=== PATIENT | female | born 1975 | race Caucasian/White ===

== ENCOUNTER 2017-06-20 02:06 | Emergency (ER) | payer SELFPAY ==
[2017-06-20 02:22] LABS: Bilirubin Negative (Negative); Blood, Urine Negative (Negative); Glucose, Urine (Dipstick) Negative (Negative); Ketone, Urine Negative (Negative); Nitrite Negative (Negative); Protein, Urine (Dipstick) Negative (Neg-Trace)
[2017-06-20] MEDS ORDERED: Ibuprofen 800 MG TAB ONE (04:50)
[2017-06-20 05:06] LABS: #Basophils 0.1 thou/uL (0.0-0.2); #Eosinphils 0.4 thou/uL (0.0-0.7); #Lymphocytes 2.2 thou/uL (1.20-3.40); #Monocytes 0.6 thou/uL (0.11-0.59); #Neutrophils 3.8 thou/uL (1.40-6.50); %Basophils 0.9 % (0.0-1.0); %Eosinophils 5.1 % (0.0-10.0); %Lymphocytes 30.7 % (21.0-51.0); Hematocrit 31.1 % (36.0-47.0); Mean Platelet Volume 8.4 fL (7.4-10.4); Red Blood Cell (RBC) Count 3.54 mill/uL (4.20-5.40); White Blood Cell (WBC) Count 7.1 thou/uL (4.8-10.8)
[2017-06-20 05:27] LABS: Anion Gap 12 mmol/L (10-20); BUN (Urea Nitrogen) 13 mg/dL (7.0-18.7); Calc. Creatinine Clearance 0 mL/min (70-130); Calcium 8.6 mg/dL (7.8-10.44); Carbon Dioxide 21 mmol/L (22-29); Chloride 108 mmol/L (98-107); Estimated GFR-MDRD 81
--- NOTE | 2017-06-20 06:34 | ULT ---
PRELIMINARY REPORT/[facility]/EMERGENCY AFTER HOURS PROCEDURE: EXAM: US Pelvis Complete CLINICAL HISTORY: 42 years old, female; Pain; Pelvic pain and other: Pelvic pain more to rt side; Prior surgery; Surge ry date: 6+ months; Surgery type: Tubaligation (1995) TECHNIQUE: Real-time pelvic ultrasound (complete) with image documentation. COMPARISON: No relevant prior studies available. FINDINGS: The uterus measures 7.4 cm in length. There is no intrauterine fluid. There is no visible focal uterine mass. Endometrial thickness is 5.9 mm. There is no free pelvic fluid. The right ovary contains a relatively simple appearing cyst, measuring 28 x 25 x 28 mm. This is lik bianca a physiologic cyst, although other etiologies are not excluded. As clinically directed, follow up in one to three months may be useful to evaluate for resolution of a physiologic cyst, and to guard against a persistent/enlarging lesion. The left ovary appears unremarkable. Blood flow detected in each ovary. The urinary bladder was not completely evaluated/imaged at this time. IMPRESSION: 28 x 25 x 28 mm right ovarian cyst, see above discussion. Essentially unremarkable sonographic appearance of the uterus and left ovary. Other details discussed above. EXAM: US Pelvis, Transvaginal CLINICAL HISTORY: 42 years old, female; Pain; Pelvic pain and other: Pelvic pain more to rt side; Prior surgery; Surge ry date: 6+ months; Surgery type: Tubaligation (1995) TECHNIQUE: Real-time transvaginal pelvic ultrasound (complete) with image documentation. Transvaginal imaging w as used for better evaluation of the endometrium and adnexa. COMPARISON: No relevant prior studies available. FINDINGS: The uterus measures 7.4 cm in length. There is no intrauterine fluid. There is no visible focal uterine mass. Endometrial thickness is 5.9 mm. There is no free pelvic fluid. The right ovary contains a relatively simple appearing cyst, measuring 28 x 25 x 28 mm. This is lik bianca a physiologic cyst, although other etiologies are not excluded. As clinically directed, follow up in one to three months may be useful to evaluate for resolution of a physiologic cyst, and to guard against a persistent/enlarging lesion. The left ovary appears unremarkable. Blood flow detected in each ovary. The urinary bladder was not completely evaluated/imaged at this time. Endovaginal scanning provided better visualization/evaluation of the endometrium and ovarian/adnexal findings discussed above. IMPRESSION: 28 x 25 x 28 mm right ovarian cyst, see above discussion. Essentially unremarkable sonographic appearance of the uterus and left ovary. Other details discussed above. Thank you for allowing us to participate in the care of your patient. Dictated and Authenticated by: Kurt Ortega MD 06/20/2017 5:46 AM Central Time ([place] \T\ [place]) FINAL REPORT ON OVERNIGHT [facility] STUDY: I agree with the preliminary report provided. There is a 2.8 cm cyst within the right ovary. There is some internal echogenicity that raises suspicion that this is likely reflective of a hemorrhagic cyst. Follow-up examination in 6-8 weeks is recommended to document resolution. Left ovary is normal appearing. There is no evidence of torsion. No free fluid is evident. Visual ized aspects of the uterus appear within normal limits. POS: [facility]
== END 2017-06-20 06:00 | disposition home or self-care (01) ==
LOC: ERS 02:06
DX: N83.201 Unspecified ovarian cyst, right side (principal); F17.210 Nicotine dependence, cigarettes, uncomplicated; B19.20 Unspecified viral hepatitis C without hepatic coma
CPT/HCPCS: 36415; 76856; 80048; 81003; 85025

== ENCOUNTER 2018-01-02 15:55 | Emergency (ER) | payer SELFPAY ==
[2018-01-02 16:50] LABS: #Eosinphils 0.1 thou/uL (0.0-0.7); #Lymphocytes 1.9 thou/uL (1.20-3.40); #Monocytes 1.1 thou/uL (0.11-0.59); #Neutrophils 11.7 thou/uL (1.40-6.50); %Basophils 0.3 % (0.0-1.0); %Eosinophils 0.6 % (0.0-10.0); %Lymphocytes 12.8 % (21.0-51.0); %Monocytes 7.6 % (0.0-10.0); %Neutrophils 78.7 % (42.0-75.0); Mean Corpuscular HGB CONC 32.7 g/dL (32.0-36.0); Mean Corpuscular Hemoglobin 28.3 pg (27.0-31.0); Mean Corpuscular Volume 86.6 fl (81.0-99.0); Mean Platelet Volume 8.3 fL (7.4-10.4); Platelet Count 189 thou/uL (130-400); RBC Distribution Width 16.6 % (11.5-14.5); Red Blood Cell (RBC) Count 3.88 mill/uL (4.20-5.40); White Blood Cell (WBC) Count 14.8 thou/uL (4.8-10.8)
[2018-01-02 17:12] LABS: ALT (SGPT) 42 U/L (8-55); AST (SGOT) 26 U/L (5-34); Albumin 3.9 g/dL (3.5-5.0); Alkaline Phosphatase 77 U/L (40-150); Anion Gap 14 mmol/L (10-20); BUN (Urea Nitrogen) 8 mg/dL (7.0-18.7); Bilirubin, Total 0.4 mg/dL (0.2-1.2); Calc. Creatinine Clearance 0 mL/min (70-130); Calcium 8.7 mg/dL (7.8-10.44); Carbon Dioxide 22 mmol/L (22-29); Chloride 102 mmol/L (98-107); Estimated GFR-MDRD 82; Globulin 3.4 g/dL (2.4-3.5); Glucose 125 mg/dL (70-105); Lipase 9 U/L (8-78); Potassium 3.6 mmol/L (3.5-5.1); Protein, Total 7.3 g/dL (6.0-8.3); Sodium 134 mmol/L (136-145)
[2018-01-02] MEDS ORDERED: Ketorolac Tromethamine 30 MG/ML VIAL ONE (18:54)
[2018-01-02 19:10] LABS: BHCG - Serum Negative (NEGATIVE); Pregs Control Background? CLEAR/WHITE (CLR/WHITE); Pregs Control Bar Appear? YES (CONTROL BAR)
[2018-01-02 19:52] LABS: Bilirubin Negative (Negative); Blood, Urine Large (Negative); Clarity CLOUDY (Clear); Glucose, Urine (Dipstick) Negative (Negative); Leukocyte Large (Negative); Nitrite Positive (Negative); Protein, Urine (Dipstick) 30 mg/dL (Neg-Trace); Specific Gravity, Urine 1.011 (1.002-1.036); pH, Urine 7.5 (5.0-9.0)
[2018-01-02 19:57] LABS: Bacteria/HPF 4+ HPF (None Seen); Hyaline Casts/LPF 0-3 HYALINE CAST LPF (0-3 Hyaline); Pathc Cast-AUWi Flag 0.29 (0-2.49); RBC/HPF GREATER THAN 50-TNTC HPF (0-3); Squamous Epithelial 0-3 HPF (0-3)
[2018-01-02] MEDS ORDERED: Morphine 4 MG/ML VIAL ONE (20:15)
[2018-01-02] MEDS ORDERED: cefTRIAXone\\ROCEPHIN 2 GM VIAL ONE (20:32)
--- NOTE | 2018-01-02 21:06 | CT ---
CT ABDOMEN AND PELVIS WITHOUT IV CONTRAST: INDICATIONS: Right sided flank pain for one day. FINDINGS: There are edematous changes and enlargement involving the right kidney, without dennis hydronephrosis. No definite renal calculus or ureteral calculus is noted. The left kidney, on this unopacified exa mination, appears within normal limits. The appendix is not definitely seen. There is mild free fluid in the pelvis. There are scattered ph leboliths. There is a mild amount of retained stool within the colon. The small bowel is of normal caliber. The unopacified liver, pancreas, adrenal glands, and spleen appear within normal limits. There are superior endplate compression abnormalities involving, T10 through T12, which is stable sin ce 2003. No acute osseous abnormality is evident. IMPRESSION: 1. Edematous changes involving the right kidney with perinephric stranding, suspicious for pyeloneph ritis. No definite hydronephrosis is evident. No renal or ureteral calculus is noted. Recommend co rrelation with clinical examination. 2. Remote appearing superior endplate compression abnormalities of T10, T11, and T12. POS: [facility]
== END 2018-01-02 21:25 | disposition home or self-care (01) ==
LOC: ERS 15:55
DX: N12 Tubulo-interstitial nephritis, not specified as acute or chronic (principal); F17.210 Nicotine dependence, cigarettes, uncomplicated
CPT/HCPCS: 36415; 74176; 80053; 81003; 81015; 82550; 83605; 83690; 84703; 85025; 87077; 87086; 87186; 96361; 96374; 96375; 99406; J0696; J1885; J2270

== ENCOUNTER 2018-06-16 18:57 | Emergency (ER) | payer SELFPAY ==
[2018-06-16] MEDS ORDERED: Adacel (T-DAP) 0.5 ML VIAL ONE (19:10)
[2018-06-16] MEDS ORDERED: Morphine 4 MG/ML VIAL ONE ×3 (19:10→21:17)
--- NOTE | 2018-06-16 20:15 | RAD ---
RADIOGRAPH LEFT FOOT THREE VIEWS: Date: 06-16-18 Time: 6:58 p.m. History: 43-year-old female status post acute traumatic injury to the left foot. FINDINGS: There is a comminuted fracture of the first distal phalanx. An approximately 9 x 5 x 7 mm triangular fracture fragment is significantly displaced and rotated dorsally and proximally, and protrudes outsi de of the skin surface. The rest of the shaft is shattered. Distal tuft is involved with nondisplaced fracture. The proximal metaphysis and the first interphalangeal joint are intact. Numerous punctate tiny calcific densities in the region of the fracture could represent tiny foreign bodies. IMPRESSION: Acute, traumatic, displaced, comminuted, open fracture of the distal phalanx of the left great toe. POS: [facility]
[2018-06-16] MEDS ORDERED: Clindamycin/D5W 600 mg/50 ml Premix Bag ONE (20:52)
[2018-06-16] MEDS ORDERED: Midazolam HCl 5 mg/ml Vial ONE (21:54)
[2018-06-16] MEDS ORDERED: Midazolam HCl 2 mg/2 ml Vial ONE (21:54)
== END 2018-06-16 22:50 | disposition home or self-care (01) ==
LOC: ERS 18:57
DX: S92.422B Displaced fracture of distal phalanx of left great toe, initial encounter for open fracture (principal); F17.210 Nicotine dependence, cigarettes, uncomplicated; W20.8XXA Other cause of strike by thrown, projected or falling object, initial encounter
CPT/HCPCS: 12001; 90471; 90715; 96361; 96365; 96375; 96376; J2250; J2270; J3490

== ENCOUNTER 2018-11-01 20:02 | Emergency (ER) | payer SELFPAY | END 2018-11-01 21:40 | disposition home or self-care (01) | LOC: ERS 20:02 | DX: H60.93 Unspecified otitis externa, bilateral (principal); F17.210 Nicotine dependence, cigarettes, uncomplicated | CPT/HCPCS: 99282 ==

== ENCOUNTER 2019-02-13 15:51 | Emergency (ER) | payer SELFPAY ==
[2019-02-13] MEDS ORDERED: Dexamethasone 10 MG/ML VIAL ONE (16:23)
[2019-02-13] MEDS ORDERED: Ibuprofen 800 MG TAB ONE (16:27)
== END 2019-02-13 16:55 | disposition home or self-care (01) ==
LOC: ERS 15:51
DX: J02.9 Acute pharyngitis, unspecified (principal); F17.210 Nicotine dependence, cigarettes, uncomplicated
CPT/HCPCS: 87081; 87430; 99283; J1100

== ENCOUNTER 2019-04-03 10:41 | Emergency (ER) | payer SELFPAY ==
[2019-04-03] MEDS ORDERED: traMADol HCl 50 MG TAB ONE (12:30)
== END 2019-04-03 12:40 | disposition home or self-care (01) ==
LOC: ERS 10:41
DX: N61.1 Abscess of the breast and nipple (principal); F17.210 Nicotine dependence, cigarettes, uncomplicated
CPT/HCPCS: 99283

== ENCOUNTER 2019-06-21 19:15 | Emergency (ER) | payer SELFPAY ==
[2019-06-21 20:03] LABS: #Basophils 0.1 thou/uL (0.0-0.2); #Eosinphils 0.4 thou/uL (0.0-0.7); #Lymphocytes 2.6 thou/uL (1.20-3.40); #Monocytes 0.6 thou/uL (0.11-0.59); #Neutrophils 3.7 thou/uL (1.40-6.50); %Basophils 1.1 % (0.0-1.0); %Eosinophils 4.8 % (0.0-10.0); %Lymphocytes 35.9 % (21.0-51.0); %Monocytes 7.9 % (0.0-10.0); %Neutrophils 50.3 % (42.0-75.0); Hemoglobin 11.9 g/dL (12.0-16.0); Mean Corpuscular HGB CONC 33.2 g/dL (32.0-36.0); Mean Corpuscular Hemoglobin 30.5 pg (27.0-31.0); Mean Corpuscular Volume 91.9 fL (78.0-98.0); Mean Platelet Volume 8.9 fL (7.4-10.4); Platelet Count 195 thou/uL (130-400); RBC Distribution Width 13.8 % (11.5-14.5); Red Blood Cell (RBC) Count 3.89 mill/uL (4.20-5.40); White Blood Cell (WBC) Count 7.4 thou/uL (4.8-10.8)
[2019-06-21 20:12] LABS: BHCG - Serum Negative (NEGATIVE); Pregs Control Background? CLEAR/WHITE (CLR/WHITE); Pregs Control Bar Appear? YES (CONTROL BAR)
[2019-06-21 20:23] LABS: ALT (SGPT) 14 U/L (8-55); AST (SGOT) 20 U/L (5-34); Albumin 3.7 g/dL (3.5-5.0); Alkaline Phosphatase 90 U/L (40-110); Anion Gap 14 mmol/L (10-20); BUN (Urea Nitrogen) 16 mg/dL (7.0-18.7); Bilirubin, Total Less than 0.2 mg/dL (0.2-1.2); Calc. Creatinine Clearance 0 mL/min (70-130); Calcium 8.8 mg/dL (7.8-10.44); Carbon Dioxide 22 mmol/L (22-29); Chloride 106 mmol/L (98-107); Estimated GFR-MDRD 89; Globulin 3.4 g/dL (2.4-3.5); Glucose 112 mg/dL (70-105); Lipase 22 U/L (8-78); Potassium 4.1 mmol/L (3.5-5.1); Protein, Total 7.1 g/dL (6.0-8.3); Sodium 138 mmol/L (136-145)
[2019-06-21 20:47] LABS: Bilirubin Negative (Negative); Blood, Urine 2+ (Negative); Clarity Clear (Clear); Glucose, Urine (Dipstick) Normal (Negative); Leukocyte 500 Leu/uL (Negative); Nitrite Negative (Negative); Protein, Urine (Dipstick) Negative (Neg-Trace); Urobilinogen Normal mg/dL (Less than 2); WBC/HPF 21-50 HPF (0-3)
[2019-06-21 20:51] LABS: Bacteria/HPF 2+ HPF (None Seen)
[2019-06-21] MEDS ORDERED: Morphine 4 MG/ML VIAL ONE ×2 (20:54→22:24)
--- NOTE | 2019-06-21 22:53 | CT ---
CT ABDOMEN AND PELVIS WITHOUT CONTRAST: 06/21/19 INDICATIONS: Lower abdominal pain. COMPARISON: 01/02/18. FINDINGS: Lung base is clear. Liver, spleen, pancreas unremarkable. Numerous radiopaque tablets in the stomach. The stomach is distended with ingested material. Adrenal glands unremarkable. Kidneys unremarkable. Urinary bladder distended and unremarkable. Small bowel loops unremarkable. Sto ol throughout the colon. Appendix appears normal. Images through the pelvis show unremarkable uterus and adnexa. No free fluid. IMPRESSION: No acute process identified. POS: OFF
[2019-06-21] MEDS ORDERED: cefTRIAXone\\ROCEPHIN 1 GM VIAL ONE (23:30)
[2019-06-21] MEDS ORDERED: Sodium Chloride 0.9% 100 ML ONE (23:30)
== END 2019-06-22 00:15 | disposition home or self-care (01) ==
LOC: ERS 19:15
DX: N39.0 Urinary tract infection, site not specified (principal); F17.210 Nicotine dependence, cigarettes, uncomplicated
CPT/HCPCS: 36415; 74176; 80053; 81003; 81015; 83605; 83690; 84703; 85025; 87077; 87086; 87186; 96361; 96365; 96375; 96376; J0696; J2270; J3490

== ENCOUNTER 2019-07-19 09:34 | Emergency (ER) | payer SELFPAY ==
[2019-07-19] MEDS ORDERED: Lidocaine 1% w/Epinephrine 1:100K 20 ML VIAL ONE (10:19)
[2019-07-19 10:35] LABS: Bilirubin Negative (Negative); Blood, Urine Trace (Negative); Clarity Turbid (Clear); Glucose, Urine (Dipstick) Normal (Negative); Leukocyte 250 Leu/uL (Negative); Nitrite Negative (Negative); Protein, Urine (Dipstick) Negative (Neg-Trace); RBC/HPF 0-3 HPF (0-3); Renal Epithelial 0-3 HPF (None Seen); Transitional Epithelial 0-3 HPF (None Seen); Urobilinogen Normal mg/dL (Less than 2); WBC/HPF Greater than 50 HPF (0-3)
[2019-07-19 10:43] LABS: Bacteria/HPF 3+ HPF (None Seen)
[2019-07-19] MEDS ORDERED: Sulfameth/Trimethoprim DS 800-160mg TAB ONE (11:04)
== END 2019-07-19 11:20 | disposition home or self-care (01) ==
LOC: ERS 09:34
DX: N39.0 Urinary tract infection, site not specified (principal); L02.414 Cutaneous abscess of left upper limb; F17.210 Nicotine dependence, cigarettes, uncomplicated
CPT/HCPCS: 10060; 81003; 81015; 87077; 87086; 87186

== ENCOUNTER 2019-07-21 15:39 | Emergency (ER) | payer SELFPAY ==
[2019-07-21 17:21] LABS: #Basophils 0.1 thou/uL (0.0-0.2); #Eosinphils 0.5 thou/uL (0.0-0.7); #Lymphocytes 2.5 thou/uL (1.20-3.40); #Monocytes 0.6 thou/uL (0.11-0.59); #Neutrophils 4.1 thou/uL (1.40-6.50); %Basophils 1.1 % (0.0-1.0); %Lymphocytes 32.3 % (21.0-51.0); %Monocytes 7.7 % (0.0-10.0); Hemoglobin 12.9 g/dL (12.0-16.0); Mean Corpuscular HGB CONC 32.3 g/dL (32.0-36.0); Mean Corpuscular Hemoglobin 30.4 pg (27.0-31.0); Mean Corpuscular Volume 94.1 fL (78.0-98.0); Mean Platelet Volume 9.4 fL (7.4-10.4); Platelet Count 195 thou/uL (130-400); Red Blood Cell (RBC) Count 4.25 mill/uL (4.20-5.40); White Blood Cell (WBC) Count 7.8 thou/uL (4.8-10.8)
[2019-07-21 18:27] LABS: ALT (SGPT) 11 U/L (8-55); AST (SGOT) 15 U/L (5-34); Albumin 3.9 g/dL (3.5-5.0); Alkaline Phosphatase 90 U/L (40-110); Anion Gap 17 mmol/L (10-20); BUN (Urea Nitrogen) 22 mg/dL (7.0-18.7); Bilirubin, Total 0.2 mg/dL (0.2-1.2); Calc. Creatinine Clearance 0 mL/min (70-130); Calcium 9.2 mg/dL (7.8-10.44); Carbon Dioxide 20 mmol/L (22-29); Chloride 108 mmol/L (98-107); Estimated GFR-MDRD 72; Globulin 3.6 g/dL (2.4-3.5); Glucose 121 mg/dL (70-105); Potassium 4.7 mmol/L (3.5-5.1); Protein, Total 7.5 g/dL (6.0-8.3); Sodium 140 mmol/L (136-145)
[2019-07-21] MEDS ORDERED: Bacitracin 1 PK ONE (18:53)
[2019-07-21] MEDS ORDERED: Sulfameth/Trimethoprim DS 800-160mg TAB ONE (19:16)
[2019-07-21] MEDS ORDERED: Meclizine HCl 25 MG TAB ONE (19:16)
[2019-07-21] MEDS ORDERED: cefTRIAXone\\ROCEPHIN 1 GM VIAL ONE (19:17)
[2019-07-21] MEDS ORDERED: Ibuprofen 200 MG TAB ONE (19:18)
[2019-07-21 20:30] LABS: Bacteria/HPF None Seen HPF (None Seen); Bilirubin Negative (Negative); Blood, Urine Trace (Negative); Clarity Clear (Clear); Glucose, Urine (Dipstick) Normal (Negative); Leukocyte Negative Leu/uL (Negative); Nitrite Negative (Negative); Protein, Urine (Dipstick) Negative (Neg-Trace); Urobilinogen Normal mg/dL (Less than 2); WBC/HPF 0-3 HPF (0-3)
== END 2019-07-21 21:10 | disposition home or self-care (01) ==
LOC: ERS 15:39
DX: N39.0 Urinary tract infection, site not specified (principal); E86.0 Dehydration; F17.210 Nicotine dependence, cigarettes, uncomplicated
CPT/HCPCS: 36416; 80053; 81003; 81015; 85025; 93005; 96365; J0696; J8597

== ENCOUNTER 2019-08-06 19:21 | Inpatient (IN) | payer SELFPAY ==
[~2019-08-06 19:21] MED LIST: Iopamidol 370 76% 100 ML VIAL ONE
[2019-08-06] MEDS ORDERED: Promethazine HCl 25 MG/ML VIAL ONE (20:05)
[2019-08-06 20:20] LABS: #Eosinphils 0.1 thou/uL (0.0-0.7); #Lymphocytes 1.5 thou/uL (1.20-3.40); #Monocytes 1.2 thou/uL (0.11-0.59); #Neutrophils 9.3 thou/uL (1.40-6.50); %Basophils 0.3 % (0.0-1.0); %Eosinophils 0.7 % (0.0-10.0); %Lymphocytes 12.2 % (21.0-51.0); %Neutrophils 76.8 % (42.0-75.0); Hemoglobin 12.4 g/dL (12.0-16.0); Mean Corpuscular HGB CONC 32.7 g/dL (32.0-36.0); Mean Corpuscular Hemoglobin 30.1 pg (27.0-31.0); Mean Corpuscular Volume 91.9 fL (78.0-98.0); Mean Platelet Volume 8.6 fL (7.4-10.4); Platelet Count 144 thou/uL (130-400); Red Blood Cell (RBC) Count 4.12 mill/uL (4.20-5.40); White Blood Cell (WBC) Count 12.1 thou/uL (4.8-10.8)
[2019-08-06 20:30] LABS: BHCG - Serum Negative (NEGATIVE); Pregs Control Background? CLEAR/WHITE (CLR/WHITE); Pregs Control Bar Appear? YES (CONTROL BAR)
[2019-08-06 20:34] LABS: ALT (SGPT) 10 U/L (8-55); AST (SGOT) 13 U/L (5-34); Albumin 4.1 g/dL (3.5-5.0); Alkaline Phosphatase 81 U/L (40-110); Anion Gap 11 mmol/L (10-20); BUN (Urea Nitrogen) 10 mg/dL (7.0-18.7); Bilirubin, Total 0.5 mg/dL (0.2-1.2); Calc. Creatinine Clearance 0 mL/min (70-130); Calcium 9.2 mg/dL (7.8-10.44); Carbon Dioxide 27 mmol/L (22-29); Chloride 102 mmol/L (98-107); Estimated GFR-MDRD 79; Globulin 3.5 g/dL (2.4-3.5); Glucose 93 mg/dL (70-105); Lipase 155 U/L (8-78); Potassium 4.3 mmol/L (3.5-5.1); Protein, Total 7.6 g/dL (6.0-8.3); Sodium 136 mmol/L (136-145)
[2019-08-06] MEDS ORDERED: Mag-Al 1200 mg/1200 mg/30 ML UDCUP ONE (21:15)
[2019-08-06] MEDS ORDERED: Lidocaine Viscous Sol 2% 15 ml UD Cup ONE (21:15)
[2019-08-06] MEDS ORDERED: Morphine 4 MG/ML VIAL ONE (21:50)
[2019-08-06] MEDS ORDERED: methylPREDNISolone Sod Succ/PF 125 MG/2 ML VIAL ONE (21:51)
[2019-08-06] MEDS ORDERED: diphenhydrAMINE 50 MG/ML VIAL ONE (21:51)
[2019-08-06] MEDS ORDERED: Ibuprofen 200 MG TAB ONE (22:44)
[2019-08-06 22:51] LABS: Bacteria/HPF 4+ HPF (None Seen); Bilirubin Negative (Negative); Blood, Urine 2+ (Negative); Clarity Turbid (Clear); Glucose, Urine (Dipstick) Normal (Negative); Leukocyte 500 Leu/uL (Negative); Nitrite 2+ (Negative); Protein, Urine (Dipstick) 30 mg/dL (Neg-Trace); Squamous Epithelial 0-3 HPF (0-3); Urobilinogen Normal mg/dL (Less than 2); WBC/HPF Greater than 50 HPF (0-3)
--- NOTE | 2019-08-06 23:00 | CT ---
EXAM: Abdomen and pelvic CT scan with contrast: HISTORY: Generalized abdominal pain and vomiting COMPARISON: 06/21/2019 noncontrast study. FINDINGS: The visualized lung bases are clear. Liver: Unremarkable. Gallbladder:Unremarkable. Pancreas:Unremarkable Spleen:Unremarkable. Adrenal glands:Unremarkable. Kidneys:No renal calculus or acute obstruction. There is some heterogeneous low attenuation within the left kidney evidence for pyelonephritis. No so lid or cystic mass. No evidence for bowel obstruction. No CT evidence for acute appendicitis. Urinary bladder wall is minimally thickened which certainly can be seen in cases of cystitis. Reproductive system:Unremarkable No abscess, adenopathy, or abnormal fluid collection within the abdomen or pelvis. IMPRESSION: Evidence for left renal pyelonephritis. Thickened urinary bladder wall which can be seen in cystitis.
[2019-08-07] MEDS ORDERED: Ondansetron ODT 4 MG TAB SL PRN (01:23)
[2019-08-07] MEDS ORDERED: Sodium Chloride 0.9% 1,000 ML IV SCH (01:23)
[2019-08-07] MEDS ORDERED: Ondansetron PF 4 MG/2 ML Vial IVP PRN ×2 (01:23→01:24)
[2019-08-07] MEDS ORDERED: Ondansetron ODT 4 MG TAB PO PRN (01:24)
[2019-08-07] MEDS ORDERED: Ibuprofen 200 MG TAB PO PRN (01:24)
[2019-08-07] MEDS ORDERED: Acetaminophen 500 MG TAB PO PRN (01:24)
[2019-08-07 01:42] VITALS: BMI 26.4
[2019-08-07] MEDS: Sodium Chloride 0.9% 1,000 ML IV SCH ×2 (02:26→08:10)
--- NOTE | 2019-08-07 04:34 | HP ---
PRIMARY CARE PROVIDER: [facility] [place], [place]. CHIEF COMPLAINT: Abdominal pain and vomiting. HISTORY OF PRESENT ILLNESS: This is a 44-year-old female, who presents to [facility] emergency Department complaining of 3 to 4 day history of persistent abdominal pain in the left lower back radiating to the lower pelvis with associated difficulty with urination. The patient was apparently evaluated on 07/21/2019, for dysuria and diagnosed with urinary tract infection; however was unable to fill the antibiotic prescription due to financial constraints. The patient had persistent symptoms culminating into severe low back pain with associated vomiting and undocumented fever. The patient increased her water intake and cranberry juice, but was unable to hold down fluids due to emesis. The patient denied any new exposure history or medication exposure. The patient denied family members with similar complaints. In the emergency room, the patient underwent general evaluation including CT of the abdomen and pelvis showing evidence of inflammatory changes in the left renal distribution consistent with pyelonephritis. The patient received IV Levaquin 750 mg x1 in addition to intravenous normal saline, ibuprofen, Solu-Medrol, Benadryl, morphine sulfate, Phenergan and a GI cocktail. PAST MEDICAL HISTORY: 1. Hepatitis C, chronic. 2. Tobacco abuse ongoing. 3. History of marijuana abuse. PAST SURGICAL HISTORY: 1. Status post dilation and curettage in 1993. 2. Status post right leg surgery. CURRENT MEDICATIONS: Mavyret 100/40 mg 3 tablets p.o. daily. ALLERGIES: IODINE AND PENICILLIN. FAMILY HISTORY: No inheritable disease per patient report. SOCIAL HISTORY: Accompanied by her boyfriend. Resides in the [facility] area. History of marijuana abuse. Smokes up to a pack of cigarettes daily for over 25 years. No alcohol use. REVIEW OF SYSTEMS: CONSTITUTIONAL: Negative for weight loss or gain, ability to conduct usual activities. SKIN: Negative for rash, itching. EYES: Negative for double vision, pain. ENT/MOUTH: Negative for nose bleeding, neck stiffness, pain, tenderness. CARDIOVASCULAR: Negative for palpitations, dyspnea on exertion, orthopnea. RESPIRATORY: Negative for shortness of breath, wheezing, cough, hemoptysis, fever or night sweats. GASTROINTESTINAL: Negative for poor appetite, abdominal pain, heartburn, nausea, vomiting, constipation, or diarrhea. GENITOURINARY: Negative for urgency, frequency, dysuria, nocturia. MUSCULOSKELETAL: Negative for pain, swelling. NEUROLOGIC/PSYCHIATRIC: Negative for anxiety, depression. ALLERGY/IMMUNOLOGIC: Negative for skin rash, bleeding tendency. Otherwise negative except as stated per HPI. PHYSICAL EXAMINATION: VITAL SIGNS: On admission, blood pressure 114/64, pulse 123, respiratory rate 19, temperature 98.4 degrees Fahrenheit, O2 saturation 96% on room air. GENERAL APPEARANCE: This is a 44-year-old female, alert and oriented x3, ill-appearing, in [id number] distress. HEENT: Pupils are equal, round, reactive to light and accommodation. Extraocular muscles are intact. No scleral icterus. Mild conjunctival injection. Nares patent. OP is clear. Oral mucosa dry appearing. Teeth in poor repair. NECK: Supple. No cervical adenopathy. No thyromegaly. No carotid bruits. No JVD appreciated. Cervical spine with full active and passive range of motion. No meningeal signs noted. CHEST: Lungs are clear to auscultation bilaterally. CARDIOVASCULAR: S1, S2 with tachycardia. No murmur, rub or gallop appreciated. ABDOMEN: Rounded, soft with tenderness to palpation in the left upper and lower quadrant as well as left flank tenderness to palpation. Bowel sounds are positive in all 4 quadrants. No palpable mass. No rebound or guarding noted. EXTREMITIES: Warm and dry with fair turgor. No clubbing, cyanosis, or asymmetric edema appreciated. Pulses palpable distally at the dorsalis pedis, posterior tibial, and popliteal arteries bilaterally. Capillary refill less than 2 seconds. NEUROLOGIC: Cranial nerves 2 through 12 are grossly intact. No focal or lateralizing signs appreciated. PERTINENT LABORATORY AND X-RAY FINDINGS: Basic metabolic profile within normal limits. LFTs within normal limits. Lipase 155. Serum beta HCG negative. CBC showed a white blood cell count of 12.1, hemoglobin 12.4, hematocrit 37.9, platelet count 144 with 77% neutrophils. Urinalysis showed a turbid specimen, 2+ blood and nitrite with leukocyte esterase positive, positive rbc and wbcs with 4+ bacteria. IMAGING: CT of the abdomen and pelvis dated 08/06/2019, showed stranding and inflammatory changes of the left kidney. ASSESSMENT/PLAN: 1. Sepsis secondarily to left pyelonephritis. The patient will be admitted to the medical floor. We will continue IV fluids with normal saline at 125 mL/hour. Continue Levaquin 750 mg IV q.24 hours. Await final blood and urine culture results. Toradol 30 mg IV q.6 hours. 2. Nausea and vomiting secondary to #1. 3. Continue IV fluids as outlined previously. Zofran 4 mg IV q.6 hours p.r.n. Clear liquids as tolerated. 4. Elevated lipase. Suspect secondarily to protracted emesis. Repeat lipase in the a.m. 5. Tobacco abuse. Smoking cessation resources prior to discharge. 6. Hepatitis C, chronic. Continue Mavyret. 7. Prophylaxis. SCDs while in bed. Pepcid 20 mg p.o. b.i.d. CODE STATUS: Full. Surrogate medical decision maker is patient's boyfriend. TIME SPENT: . Job ID: [id number]
[2019-08-07] MEDS: Ketorolac Tromethamine 30 MG/ML VIAL IVP SCH ×2 (05:27→08:08)
[2019-08-07 06:32] LABS: Hemoglobin 11.8 g/dL (12.0-16.0); Mean Corpuscular HGB CONC 32.7 g/dL (32.0-36.0); Mean Corpuscular Volume 91.8 fL (78.0-98.0); Mean Platelet Volume 9.3 fL (7.4-10.4); Platelet Count 137 thou/uL (130-400); Red Blood Cell (RBC) Count 3.94 mill/uL (4.20-5.40); White Blood Cell (WBC) Count 15.1 thou/uL (4.8-10.8)
[2019-08-07 06:43] LABS: Band 14 % (5-11); Lymphocytes 2 % (21-51); MDiff Complete? YES; Neutrophil 84 % (42-75); Platelet Morphology Comment Appears Adequate
[2019-08-07 06:49] LABS: ALT (SGPT) 11 U/L (8-55); AST (SGOT) 11 U/L (5-34); Albumin 3.5 g/dL (3.5-5.0); Alkaline Phosphatase 69 U/L (40-110); Anion Gap 11 mmol/L (10-20); BUN (Urea Nitrogen) 10 mg/dL (7.0-18.7); Bilirubin, Total 0.5 mg/dL (0.2-1.2); Calc. Creatinine Clearance 113 mL/min (70-130); Calcium 8.6 mg/dL (7.8-10.44); Carbon Dioxide 21 mmol/L (22-29); Chloride 108 mmol/L (98-107); Estimated GFR-MDRD Greater than 90; Globulin 3.1 g/dL (2.4-3.5); Glucose 159 mg/dL (70-105); Lipase 11 U/L (8-78); Protein, Total 6.6 g/dL (6.0-8.3); Sodium 136 mmol/L (136-145)
[2019-08-07] MEDS: Famotidine 20 MG TAB PO SCH ×2 (08:08→20:01)
[2019-08-07] MEDS ORDERED: Meropenem 1 GM in Sodium Chloride 0.9% 100 ML IVPB SCH (09:15)
[2019-08-07] MEDS: HYDROcodone/Acetaminophen 5/325 mg Tablet PO PRN ×3 (11:09→21:50)
[2019-08-07] MEDS: Sodium Chloride 0.45% 1,000 ML IV SCH ×2 (11:11→19:51)
[2019-08-07] MEDS: MEROPENEM 1 GM/50 ML 1 GM in Premix Bag 1 BAG IVPB SCH ×2 (11:15→17:13)
[2019-08-07] MEDS ORDERED: Ketorolac Tromethamine 30 MG/ML VIAL IVP SCH (14:00)
[2019-08-08] MEDS: MEROPENEM 1 GM/50 ML 1 GM in Premix Bag 1 BAG IVPB SCH ×2 (01:23→09:01)
[2019-08-08] MEDS: Sodium Chloride 0.45% 1,000 ML IV SCH ×3 (05:17→20:26)
[2019-08-08] MEDS: HYDROcodone/Acetaminophen 5/325 mg Tablet PO PRN ×4 (05:17→19:20)
[2019-08-08 06:01] LABS: #Eosinphils 0.1 thou/uL (0.0-0.7); #Lymphocytes 1.7 thou/uL (1.20-3.40); #Monocytes 1.2 thou/uL (0.11-0.59); #Neutrophils 8.3 thou/uL (1.40-6.50); %Basophils 0.3 % (0.0-1.0); %Eosinophils 0.7 % (0.0-10.0); %Lymphocytes 15.1 % (21.0-51.0); %Monocytes 10.6 % (0.0-10.0); %Neutrophils 73.3 % (42.0-75.0); Mean Corpuscular HGB CONC 32.4 g/dL (32.0-36.0); Mean Corpuscular Hemoglobin 29.9 pg (27.0-31.0); Platelet Count 124 thou/uL (130-400); RBC Distribution Width 14.1 % (11.5-14.5); Red Blood Cell (RBC) Count 3.36 mill/uL (4.20-5.40); White Blood Cell (WBC) Count 11.4 thou/uL (4.8-10.8)
[2019-08-08 06:19] LABS: ALT (SGPT) 8 U/L (8-55); AST (SGOT) 10 U/L (5-34); Alkaline Phosphatase 62 U/L (40-110); Anion Gap 8 mmol/L (10-20); BUN (Urea Nitrogen) 8 mg/dL (7.0-18.7); Bilirubin, Total 0.3 mg/dL (0.2-1.2); Calc. Creatinine Clearance 124 mL/min (70-130); Carbon Dioxide 23 mmol/L (22-29); Chloride 110 mmol/L (98-107); Estimated GFR-MDRD Greater than 90; Globulin 2.8 g/dL (2.4-3.5); Glucose 103 mg/dL (70-105); Magnesium 1.8 mg/dL (1.6-2.6); Potassium 3.7 mmol/L (3.5-5.1); Protein, Total 5.8 g/dL (6.0-8.3); Sodium 137 mmol/L (136-145)
[2019-08-08] MEDS: Saccharomyces boulardii 250 MG CAP PO SCH (08:53)
[2019-08-08] MEDS: Famotidine 20 MG TAB PO SCH ×2 (08:53→20:01)
[2019-08-08] MEDS ORDERED: Polyethylene Glycol 3350 17 GM Packet PO PRN (09:00)
[2019-08-08] MEDS: Senokot S 8.6-50 MG TAB PO SCH ×2 (10:12→20:00)
[2019-08-08] MEDS: Ketorolac Tromethamine 30 MG/ML VIAL IVP PRN ×2 (11:10→18:11)
--- NOTE | 2019-08-08 20:16 | PDOC.HOSPP ---
- Subjective Encounter Date: 08/08/19 Encounter Time: 12:00 Subjective: Patient seen and examined for Sepsis/Pyelonephritis. Suprapubic pain +. No dysuria. No other complaints. No overnight events - Objective Vital Signs & Weight: Vital Signs (12 hours) Temp Pulse Resp BP Pulse Ox 08/08/19 17:40 98.3 F 72 18 145/58 H 92 L 08/08/19 12:04 98.6 F 90 18 107/74 99 08/08/19 08:19 98.6 F 97 20 99/64 99 Weight Weight 154 lb 6 oz Result Diagrams: 08/08/19 05:45 08/08/19 05:45 Additional Labs: Microbiology 08/06/19 22:30 Urine clean catch Urine Culture - Final Escherichia coli 08/07/19 00:24 Venous blood - Left Hand Blood Culture - Preliminary Specimen has been received and culture in progress. No Growth to date. 08/07/19 00:22 Venous blood - Right Hand Blood Culture - Preliminary Specimen has been received and culture in progress. No Growth to date. Radiology Reviewed by me: Yes (CT abd - Pyeloneph) Hospitalist ROS - Review of Systems Respiratory: denies: cough, dry, shortness of breath, hemoptysis, SOB with excertion, pleuritic pain, sputum, wheezing, other Cardiovascular: denies: chest pain, palpitations, orthopnea, paroxysmal noc. dyspnea, edema, light headedness, other Gastrointestinal: reports: nausea. denies: vomiting, abdominal pain, diarrhea, constipation, melena, hematochezia, other - Medication Medications: Active Medications Generic Name Dose Route Start Last Admin Trade Name Freq PRN Reason Stop Dose Admin Hydrocodone Bitart/Acetaminophen 1 tab 08/07/19 09:07 08/08/19 19:20 Union 5/325 PO 1 tab Q4H PRN Administration Moderate Pain (4-6) Famotidine 20 mg 08/07/19 09:00 08/08/19 20:01 Pepcid PO 20 mg BID STEVEN Administration Sodium Chloride 1,000 mls @ 75 mls/hr 08/08/19 08:00 08/08/19 08:56 1/2 Normal Saline IV 1,000 mls .[id number] STEVEN Administration Ciprofloxacin/Dextrose 400 mg/ 200 mls @ 200 mls/hr 08/08/19 21:00 08/08/19 20:01 Device IVPB 200 mls Q12HR STEVEN Administration Ketorolac Tromethamine 15 mg 08/07/19 09:07 08/08/19 18:11 Toradol IVP 08/12/19 09:08 15 mg Q6H PRN Administration Pain Ondansetron HCl 4 mg 08/07/19 01:24 08/08/19 11:10 Zofran Odt PO 4 mg Q6H PRN Administration Nausea/Vomiting Saccharomyces Boulardii 250 mg 08/08/19 09:00 08/08/19 08:53 Florastor PO 250 mg DAILY STEVEN Administration Senna/Docusate Sodium 2 tab 08/08/19 09:00 08/08/19 20:00 Senokot S PO 2 tab BID STEVEN Administration Sodium Chloride 10 ml 08/07/19 21:00 08/08/19 20:01 Flush - Normal Saline IVF Not Given Q12HR STEVEN - Exam General Appearance: NAD Heart: RRR, no gallops, no rubs, normal peripheral pulses Respiratory: no wheezes, no rales, no ronchi, normal chest expansion Gastrointestinal: soft, non-distended, normal bowel sounds, tender to palpation (left flank) Extremities: no cyanosis, no clubbing, no edema Psychiatric: normal affect, A&O x 3 Hosp A/P - Plan DVT proph w/SCDs Severe Sepsis due to Left Pyelonephritis - E coli (sensitive to Cipro Tobacco dep Chronic Hep C Thrombocytopenia PCN allergy PLAN: Change Meropenem to IV Cipro Cont IVF AM labs Counselled to quit smoking Pain control
[2019-08-08] MEDS ORDERED: diphenhydrAMINE 25 MG CAP PO PRN (20:19)
[2019-08-09] MEDS: HYDROcodone/Acetaminophen 5/325 mg Tablet PO PRN ×3 (06:38→21:16)
[2019-08-09 08:56] LABS: Anion Gap 12 mmol/L (10-20); BUN (Urea Nitrogen) 7 mg/dL (7.0-18.7); Calc. Creatinine Clearance 124 mL/min (70-130); Calcium 8.8 mg/dL (7.8-10.44); Carbon Dioxide 24 mmol/L (22-29); Chloride 104 mmol/L (98-107); Estimated GFR-MDRD Greater than 90; Glucose 90 mg/dL (70-105); Sodium 136 mmol/L (136-145)
[2019-08-09] MEDS: Famotidine 20 MG TAB PO SCH ×2 (08:56→20:06)
[2019-08-09] MEDS: Senokot S 8.6-50 MG TAB PO SCH ×2 (08:57→20:06)
[2019-08-09] MEDS: Multivit, Therapeutic 1 TAB PO SCH (08:57)
[2019-08-09] MEDS: Saccharomyces boulardii 250 MG CAP PO SCH (08:57)
[2019-08-09 09:33] LABS: #Eosinphils 0.1 thou/uL (0.0-0.7); #Lymphocytes 1.3 thou/uL (1.20-3.40); #Monocytes 0.7 thou/uL (0.11-0.59); #Neutrophils 4.6 thou/uL (1.40-6.50); %Basophils 0.5 % (0.0-1.0); %Eosinophils 0.9 % (0.0-10.0); %Lymphocytes 19.5 % (21.0-51.0); %Neutrophils 68.1 % (42.0-75.0); Hemoglobin 10.8 g/dL (12.0-16.0); Mean Corpuscular HGB CONC 32.4 g/dL (32.0-36.0); Mean Corpuscular Hemoglobin 29.5 pg (27.0-31.0); Mean Platelet Volume 9.3 fL (7.4-10.4); Platelet Count 153 thou/uL (130-400); RBC Distribution Width 14.1 % (11.5-14.5); Red Blood Cell (RBC) Count 3.68 mill/uL (4.20-5.40); White Blood Cell (WBC) Count 6.7 thou/uL (4.8-10.8)
[2019-08-09] MEDS: Sodium Chloride 0.45% 1,000 ML IV SCH (14:54)
[2019-08-09] MEDS: Ketorolac Tromethamine 30 MG/ML VIAL IVP PRN (18:48)
[2019-08-10] MEDS: Sodium Chloride 0.45% 1,000 ML IV SCH ×2 (00:01→04:00)
[2019-08-10] MEDS: HYDROcodone/Acetaminophen 5/325 mg Tablet PO PRN (06:32)
[2019-08-10 07:48] VITALS: BP 114/79; TEMP 98.1
[2019-08-10] MEDS: Saccharomyces boulardii 250 MG CAP PO SCH (08:47)
[2019-08-10] MEDS ORDERED: traMADol HCl 50 MG TAB PO PRN (08:47)
[2019-08-10] MEDS: Famotidine 20 MG TAB PO SCH (08:48)
[2019-08-10] MEDS: Senokot S 8.6-50 MG TAB PO SCH (08:48)
[2019-08-10] MEDS: Multivit, Therapeutic 1 TAB PO SCH (08:48)
--- NOTE | 2019-08-10 09:37 | PDOC.HOSPP ---
- Subjective Encounter Date: 08/09/19 Encounter Time: 10:00 Subjective: Patient seen and examined for Sepsis. Flank pain improving. No new complaints. No overnight events - Objective Vital Signs & Weight: Vital Signs (12 hours) Temp Pulse Resp BP Pulse Ox 08/10/19 07:48 98.1 F 86 18 114/79 99 Weight Weight 154 lb 6 oz I&O: 08/09/19 08/10/19 08/11/19 06:59 06:59 06:59 Intake Total 1500 1670 Balance 1500 1670 Result Diagrams: 08/09/19 06:33 08/09/19 06:33 Hospitalist ROS - Review of Systems Cardiovascular: denies: chest pain, palpitations, orthopnea, paroxysmal noc. dyspnea, edema, light headedness, other Gastrointestinal: denies: nausea, vomiting, abdominal pain, diarrhea, constipation, melena, hematochezia, other - Medication Medications: Active Medications Generic Name Dose Route Start Last Admin Trade Name Freq PRN Reason Stop Dose Admin Acetaminophen 1,000 mg 08/07/19 01:24 08/09/19 16:11 Tylenol PO 1,000 mg Q6H PRN Administration Mild Pain (1-3) Diphenhydramine HCl 25 mg 08/08/19 20:19 08/09/19 22:27 Benadryl PO 25 mg Q6HR PRN Administration Itching & Insomnia Famotidine 20 mg 08/07/19 09:00 08/10/19 08:48 Pepcid PO 20 mg BID STEVEN Administration Ibuprofen 400 mg 08/12/19 10:00 08/09/19 09:05 Motrin PO 400 mg Q4H PRN Administration Fever > 101 Multivitamins 1 tab 08/09/19 09:00 08/10/19 08:48 Theragran PO 1 tab DAILY STEVEN Administration Ondansetron HCl 4 mg 08/07/19 01:24 08/08/19 11:10 Zofran Odt PO 4 mg Q6H PRN Administration Nausea/Vomiting Polyethylene Glycol 17 gm 08/08/19 09:00 08/09/19 09:03 Miralax PO 17 gm DAILY PRN Administration Constipation Saccharomyces Boulardii 250 mg 08/08/19 09:00 08/10/19 08:47 Florastor PO 250 mg DAILY STEVEN Administration Senna/Docusate Sodium 2 tab 08/08/19 09:00 08/10/19 08:48 Senokot S PO 2 tab BID STEVEN Administration - Exam General Appearance: NAD Heart: RRR, no rubs Respiratory: CTAB, no ronchi Gastrointestinal: soft, non-tender, normal bowel sounds Extremities: no edema Hosp A/P - Plan DVT proph w/SCDs Severe Sepsis due to Left Pyelonephritis - E coli (sensitive to Cipro) Tobacco dep - Counselled Chronic Hep C Thrombocytopenia PCN allergy PLAN: Cont IV Cipro Cont IVF due to BP on lower side Cont other meds DC in AM if stable
[2019-08-10] MEDS ORDERED: Ciprofloxacin 500 MG TAB PO SCH ×2 (10:00→20:00)
--- NOTE | 2019-08-10 11:44 | DIS ---
DATE OF ADMISSION: 08/07/2019 DATE OF DISCHARGE: 08/10/2019 DISCHARGE DISPOSITION: Home. FOLLOWUP: Follow up with primary care physician at [facility] in 1 week. DISCHARGE MEDICATIONS: 1. Ciprofloxacin 500 mg twice daily for next 8 days. 2. All other home medications were left unchanged. The patient was seen on the day of discharge. Denies any new complaints. No chest pain, shortness of breath, palpitations, dysuria, hematuria, urgency, or flank pain reported. BRIEF HOSPITAL COURSE: The patient is a 44-year-old white female with chronic hepatitis C, presented to the hospital with abdominal pain and vomiting. CT scan of the abdomen and pelvis in the emergency room was consistent with left renal pyelonephritis along with thickened urinary bladder wall consistent with cystitis. Urinalysis showed greater than 50 wbc's with 4+ bacteria. Blood cultures were negative. Urine culture showed E coli sensitive to ciprofloxacin. Please note that the patient is allergic to penicillin. Initially, she was started on meropenem that was switched to IV ciprofloxacin. Her WBC count on admission was 12.1 with a repeat count next day of 15.1. Her WBC count normalized yesterday at 6.7 without any left shift. She has been afebrile for more than 2 to 3 days. She appears stable for discharge. She stated understanding with current plan of care. FINAL DIAGNOSES: 1. Severe sepsis secondary to left pyelonephritis secondary to Escherichia coli, sensitive to ciprofloxacin. 2. Cystitis based on the CT scan finding. 3. Tobacco dependence. The patient was extensively counseled. 4. Chronic hepatitis C. 5. History of cannabis abuse. 6. Thrombocytopenia. Platelet yesterday was 153 from 124. 7. Chronic anemia. 8. Penicillin allergy. PLAN: Plan of care was discussed with the patient in detail. She stated understanding. Job ID: [id number]
[2019-08-12] MEDS ORDERED: Ibuprofen 200 MG TAB PO PRN (10:00)
== END 2019-08-10 14:42 | disposition home or self-care (01) | DRG 872 ==
LOC: ERS 19:21 → T4-A 08-07 01:20
PROVIDERS: ADMIT Family Medicine; ATTEND Family Medicine
DX: A41.51 Sepsis due to Escherichia coli [E. coli] (principal); N10 Acute pyelonephritis; B18.2 Chronic viral hepatitis C; R65.20 Severe sepsis without septic shock; B96.20 Unspecified Escherichia coli [E. coli] as the cause of diseases classified elsewhere; D69.6 Thrombocytopenia, unspecified; F17.200 Nicotine dependence, unspecified, uncomplicated; Z91.041 Radiographic dye allergy status; Z88.0 Allergy status to penicillin; Z98.890 Other specified postprocedural states; Z71.6 Tobacco abuse counseling; N30.90 Cystitis, unspecified without hematuria; D64.9 Anemia, unspecified
CPT/HCPCS: 36415; 74177; 80048; 80053; 81001; 83605; 83690; 83735; 84703; 85007; 85025; 85027; 87040; 87077; 87086; 87186; 96361; 96365; 96366; 96367; 96375; J0744; J1200; J1885; J1956; J2185; J2270; J2550; J2930; Q0162; Q0163; Q9967

== ENCOUNTER 2019-10-26 13:31 | Emergency (ER) | payer SELFPAY ==
[2019-10-26] MEDS ORDERED: Ketorolac Tromethamine 30 MG/ML VIAL ONE (15:18)
[2019-10-26] MEDS ORDERED: Acetaminophen 500 MG TAB ONE (15:18)
--- NOTE | 2019-10-26 16:01 | RAD ---
XR Chest 1 View Portable HISTORY: Cough, sputum, dizziness FINDINGS: The heart size is normal. The lungs are well expanded without focal areas of consolidation, pneumothorax or pleural effusions. IMPRESSION: No radiographic evidence of acute cardiopulmonary process.
[2019-10-26 16:03] LABS: #Basophils 0.1 thou/uL (0.0-0.2); #Eosinphils 0.3 thou/uL (0.0-0.7); #Lymphocytes 2.3 thou/uL (1.20-3.40); #Monocytes 0.5 thou/uL (0.11-0.59); %Basophils 0.8 % (0.0-1.0); %Eosinophils 4.4 % (0.0-10.0); %Lymphocytes 32.3 % (21.0-51.0); %Monocytes 6.8 % (0.0-10.0); %Neutrophils 55.7 % (42.0-75.0); Hemoglobin 13.1 g/dL (12.0-16.0); Mean Corpuscular HGB CONC 33.8 g/dL (32.0-36.0); Mean Corpuscular Hemoglobin 31.7 pg (27.0-31.0); Mean Corpuscular Volume 93.7 fL (78.0-98.0); Mean Platelet Volume 8.6 fL (7.4-10.4); Platelet Count 246 thou/uL (130-400); RBC Distribution Width 13.9 % (11.5-14.5); Red Blood Cell (RBC) Count 4.13 mill/uL (4.20-5.40); White Blood Cell (WBC) Count 7.2 thou/uL (4.8-10.8)
[2019-10-26 16:18] LABS: Acetaminophen Less than 6.0 mcg/mL (10.0-30.0); Alcohol Less than 10 mg/dL (Less than 10); Salicylate Less than 8.0 mg/dL (15.0-30.0)
[2019-10-26 16:20] LABS: ALT (SGPT) 11 U/L (8-55); AST (SGOT) 15 U/L (5-34); Albumin 4.1 g/dL (3.5-5.0); Alkaline Phosphatase 88 U/L (40-110); Anion Gap 12 mmol/L (10-20); BUN (Urea Nitrogen) 11 mg/dL (7.0-18.7); Bilirubin, Total 0.2 mg/dL (0.2-1.2); Calc. Creatinine Clearance 0 mL/min (70-130); Calcium 9.1 mg/dL (7.8-10.44); Carbon Dioxide 28 mmol/L (22-29); Chloride 102 mmol/L (98-107); Estimated GFR-MDRD 68; Globulin 3.1 g/dL (2.4-3.5); Glucose 95 mg/dL (70-105); Lipase 21 U/L (8-78); Potassium 4.5 mmol/L (3.5-5.1); Protein, Total 7.2 g/dL (6.0-8.3); Sodium 137 mmol/L (136-145)
[2019-10-26 16:41] LABS: Bacteria/HPF None Seen HPF (None Seen); Bilirubin Negative (Negative); Blood, Urine Trace (Negative); Clarity Clear (Clear); Glucose, Urine (Dipstick) Normal (Negative); Leukocyte Negative Leu/uL (Negative); Nitrite Negative (Negative); Protein, Urine (Dipstick) Negative (Neg-Trace); RBC/HPF 0-3 HPF (0-3); Squamous Epithelial 0-3 HPF (0-3); Urobilinogen Normal mg/dL (Less than 2); WBC/HPF 0-3 HPF (0-3)
[2019-10-26 16:55] LABS: Amphetamine Detected (NotDetected); Barbiturates Screen Not Detected (NotDetected); Benzodiazepine Screen Not Detected (NotDetected); Cocaine Metabolite Screen Not Detected (NotDetected); Medtox Control Line Valid? VALID (VALID); Medtox Reader # READER 1; Methadone Not Detected (NotDetected); Methamphetamine Detected (NotDetected); Opiate Screen Not Detected (NotDetected); Oxycodone Screen Not Detected (NotDetected); Phencyclidine (PCP) Not Detected (NotDetected); THC/Cannabinoid Screen Not Detected (NotDetected); Tricyclic Screen Not Detected (NotDetected)
== END 2019-10-26 18:30 | disposition home or self-care (01) ==
LOC: ERS 13:31
DX: J06.9 Acute upper respiratory infection, unspecified (principal); F17.210 Nicotine dependence, cigarettes, uncomplicated
CPT/HCPCS: 71045; 80053; 80306; 80307; 81003; 81015; 83690; 84484; 85025; 93005; 96360; 96361; 96372; J1885

== ENCOUNTER 2020-06-28 15:13 | Emergency (ER) | payer SELFPAY ==
[2020-06-28] MEDS ORDERED: Lidocaine 1% w/Epinephrine 1:100K 20 ML VIAL ONE (15:22)
[2020-06-28] MEDS ORDERED: Morphine 4 MG/ML VIAL ONE (15:34)
[2020-06-28] MEDS ORDERED: Boostrix 0.5 ML (Tdap) VIAL ONE (15:35)
--- NOTE | 2020-06-28 15:40 | RAD ---
Left elbow 4 views HISTORY: Injury. FINDINGS: Radiocapitellar alignment is maintained. No acute fracture, dislocation, or fluid distentio n of the joint capsule. IMPRESSION : No abnormalities.
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
[2020-06-28] MEDS ORDERED: Triple Antibiotic Oint 1 GM Packet ONE (16:10)
== END 2020-06-28 16:36 | disposition home or self-care (01) ==
LOC: ERS 15:13
DX: S51.012A Laceration without foreign body of left elbow, initial encounter (principal); F17.210 Nicotine dependence, cigarettes, uncomplicated; V03.90XA Pedestrian on foot injured in collision with car, pick-up truck or van, unspecified whether traffic or nontraffic accident, initial encounter
CPT/HCPCS: 12001; 90471; 90715; 96372; G0390; J2270

== ENCOUNTER 2021-09-29 10:24 | Emergency (ER) | payer SELFPAY ==
[2021-09-29 17:14] LABS: SARS-CoV-2 PCR by NAA Not Detected (NotDetected)
== END 2021-09-29 12:28 | disposition home or self-care (01) ==
LOC: ERS 10:24
DX: R11.2 Nausea with vomiting, unspecified (principal); R19.7 Diarrhea, unspecified; Z20.822 Contact with and (suspected) exposure to COVID-19; F17.200 Nicotine dependence, unspecified, uncomplicated
CPT/HCPCS: 99284; U0003; U0005